=== PATIENT | female | born 1960 | race Caucasian/White ===

== ENCOUNTER → 2018-08-19 11:29 | Outpatient (CLI) | payer OTHER, SELFPAY ==
--- NOTE | 2018-08-19 11:41 | RAD_ITS ---
STUDY: X-RAY - THORACIC SPINE REASON FOR EXAM: Female, 58 years old. Back pain x 1 year. No known injury. TECHNIQUE: 3 view(s) of the thoracic spine were obtained. COMPARISON: None. FINDINGS: Normal kyphosis of the thoracic spine. There is no substantial scoliosis. There is multilevel endplate spondylosis of the thoracic vertebrae. Normal disc space heights. There is no demonstrated compression fracture deformity or osseous destructive lesion. The paraspinal soft tissue structures are unremarkable. RAD/Thoracic Spine 3 Views IMPRESSION: Multilevel degenerative changes of the thoracic spine. Electronically Signed: Srini Hardy MD at 16:21 EDT , Service support ,
--- NOTE | 2018-08-19 11:41 | RAD_ITS ---
STUDY: X-RAY - LUMBAR SPINE REASON FOR EXAM: Female, 58 years old. Back pain x 1 year. TECHNIQUE: 5 view(s) of the lumbar spine were obtained. COMPARISON: None FINDINGS: Normal lumbar lordosis. There is a 5 degree dextroscoliosis of the lumbar spine centered at L4-5. There is mild retrolisthesis of L5 on S1 and borderline leftward subluxation of L4 on L5. 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 There is also foreshortening of the pedicular lengths at L5, leading to a relative narrowing of the spinal canal at that level. There is multilevel endplate spondylosis of the lumbar vertebrae. There is moderately severe L5-S1 degenerative disc height narrowing, and moderate narrowing at L4-5. There is no demonstrated osseous destructive lesion or fracture. There are multilevel degenerative arthroses of the bilateral facet articulations, most prominent at L4-5 and L5-S1. Early degenerative arthroses of the bilateral sacroiliac joints also suggested. The soft tissue structures are unremarkable. RAD/L/S Spine Min 4 Views IMPRESSION: 1. Degenerative changes of the spine, as detailed above. 2. 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 Electronically Signed: Srini Hardy MD at 15:57 EDT , Service support ,
== END ==
PROVIDERS: Family Provider Family Medicine; PCP Family Medicine; Referring Provider Family Medicine; Visit Provider Family Medicine
DX: M54.9 Dorsalgia, unspecified (principal); M54.6 Pain in thoracic spine
CPT/HCPCS: 72070; 72072; 72110

== ENCOUNTER → 2018-09-05 07:44 | Outpatient (CLI) | payer OTHER, SELFPAY ==
[2018-09-05 08:40] LABS: Absolute Lymphocyte Count 1.75 X10^3/ul (0.83-4.51); Absolute Neutrophil Count 2.1 X10^3/uL (2.0-7.7); Basophil# 0.05 X10^3/uL; Basophil% 1.1 % (0-1); Eosinophil# 0.16 X10^3/uL; Eosinophils% 3.5 % (0-5); Hematocrit 41.8 % (37-47); Hemoglobin 14.2 g/dl (12.0-15.0); Lymphocyte # 1.75 X10^3/ul (4.0); Lymphocyte % 38.2 % (19-41); Mean Corpuscular Hgb 29.2 pg (27.0-32.0); Mean Platelet Vol. 10.8 fl (6.2-12.0); Monocyte# 0.49 X10^3/uL; Monocyte% 10.7 % (0-10); Neutrophil # 2.12 X10^3/uL (2.7-7.7); Neutrophil % 46.3 % (47-70); POSITIVE COUNT NO; POSITIVE DIFFERENTIAL NO; POSITIVE MORPHOLOGY NO; Platelet Count 307 K/mm3 (150-450); RBC Distribution Width CV 13.2 % (11.6-14.6); RBC Distribution Width SD 40.9 fl (35.1-43.9); Red Blood Count 4.86 M/mm3 (4.2-5.4); White Blood Count 4.6 K/mm3 (4.4-11.0)
[2018-09-05 09:13] LABS: AST(SGOT) 18 U/L (15-37); Alanine Aminotransfer ALT/SGPT 33 U/L (13-56); Albumin, Serum 3.8 g/dL (3.2-5.0); Alkaline Phosphatase 125 U/L (45-117); Anion Gap 10 (5-15); BUN 16 mg/dL (7-18); BUN/Creat Ratio 17.3 RATIO (10-20); Calcium,Total 9.3 mg/dL (8.5-10.1); Chloride 106 mmol/L (98-107); Cholesterol 201 mg/dL (200); Creatinine, Serum 0.92 mg/dL (0.55-1.02); EST Glomerular Filtration Rate 66 mL/min (>60); Est Glom Filt Rate - Afr Amer 80 mL/min (>60); Globulin 3.9 g/dL (2.2-4.2); Glucose 93 mg/dL (74-106); High Density Lipoprotein 47 mg/dL; Potassium 3.9 mmol/L (3.5-5.1); Protein, Total 7.7 g/dL (6.4-8.2); Sodium Level 141 mmol/L (136-145); Thyroid Stim Hormone (TSH) 4.08 uIU/mL (0.358-3.74); Triglycerides 156 mg/dL; Very Low Density Lipoprotein 31 mg/dL (5-40)
== END ==
PROVIDERS: Family Provider Family Medicine; PCP Family Medicine; Referring Provider Family Medicine; Visit Provider Family Medicine
DX: E03.9 Hypothyroidism, unspecified (principal); I10 Essential (primary) hypertension; E78.5 Hyperlipidemia, unspecified; Z51.81 Encounter for therapeutic drug level monitoring
CPT/HCPCS: 36415; 80053; 80061; 84443; 85025

== ENCOUNTER → 2018-09-21 11:56 | Outpatient (CLI) | payer OTHER, SELFPAY ==
--- NOTE | 2018-09-21 11:59 | BI_ITS ---
MAMMOGRAPHY - BILATERAL SCREENING REASON FOR EXAM: Female, 58 years old. Routine annual screening examination. PERTINENT HISTORY: Non-contributory. TECHNIQUE: Digital bilateral breast heena (3D mammographic acquisition) in the CC and MLO projections. 2-D mediolateral oblique (MLO) and craniocaudad (CC) views of both breasts were obtained. CAD: Full Field Digital Mammography with Computer Added Detection was performed. COMPARISON: Comparison is made with prior examination dated July 17, 2016 and December 15, 2012. FINDINGS: Breast Composition: There are scattered areas of fibroglandular density. There are no dominant masses or suspicious calcifications. Stable 7 mm x 8 mm well-defined nodule in the upper lateral aspect of the right breast. Stable appearance of the bilateral axillary lymph nodes. No other significant abnormalities are identified. There has been no significant change since the prior study. BI/SCREENING MAMM (CAD), BILAT IMPRESSION: Stable bilateral screening mammogram. Correlation with ultrasound of the right breast is recommended for further evaluation. ASSESSMENT CATEGORY: BIRADS Category 0: Incomplete. Need additional imaging evaluation. A letter regarding these results will be sent to the patient by the facility within 30 days. Approximately 10% of breast cancers are not detected by mammography. A normal mammogram should not delay biopsy of a clinically suspicious abnormality. [id number] Electronically Signed: Lenin Singh MD at 13:36 EST Tel [phone], Service support ,
== END ==
PROVIDERS: Family Provider Family Medicine; PCP Family Medicine; Visit Provider Family Medicine
DX: Z12.31 Encounter for screening mammogram for malignant neoplasm of breast (principal)
CPT/HCPCS: 77063; 77067

== ENCOUNTER → 2018-09-28 10:59 | Outpatient (CLI) | payer OTHER, SELFPAY ==
--- NOTE | 2018-09-28 11:02 | US_ITS ---
STUDY: ULTRASOUND BREAST - RIGHT REASON FOR EXAM: Female, 58 years old. Abnormal screening mammogram. TECHNIQUE: Axial and longitudinal images of the RIGHT breast were performed with a high resolution ultrasound transducer. COMPARISON: Comparison is made with prior mammogram dated September 21, 2018. FINDINGS: RIGHT Breast: There is a 0.5 cm x 1.1 cm x 0.5 cm hypoechoic slightly ill-defined nodule at the 11:00 position of the breast at 3 cm from the nipple. A calcific focus is seen within it. A biopsy is recommended for further evaluation. US/Breast Limited Unilateral IMPRESSION: The mammographic abnormality corresponds to a 0.5 cm x 1.1 cm x 0.5 cm hypoechoic slightly ill-defined nodule with calcific focus within it. This is at the 11:00 position in the breast at 3 summary from the nipple. A biopsy is recommended for further evaluation. ASSESSMENT CATEGORY: BIRADS Category 4: Suspicious - Biopsy Should Be Considered. A letter regarding these results will be sent to the patient by the facility within 30 days. Electronically Signed: Lenin Singh MD at 13:54 EST Tel [phone], Service support ,
== END ==
PROVIDERS: Family Provider Family Medicine; PCP Family Medicine; Referring Provider Family Medicine; Visit Provider Family Medicine
DX: N63.0 Unspecified lump in unspecified breast (principal)
CPT/HCPCS: 76642

== ENCOUNTER → 2018-10-14 09:54 | Outpatient (CLI) | payer OTHER, SELFPAY ==
[2018-10-05 13:09] VITALS: BMI 36.0
[2018-10-14 12:21] LABS: T4 Free Direct 1.02 ng/dL (0.76-1.46); Thyroid Stim Hormone (TSH) 3.74 uIU/mL (0.358-3.74)
[2018-10-14 12:24] LABS: T3 Total - Triiodothyronine 0.92 ng/mL (0.6-1.81)
--- OUTSIDE RECORDS SUMMARY | 2018-12-09 17:43 | XMS RPT_ITS ---
:1960 Author Organization OH[facility] Care Team Providers Name Role Phone Malys, Keila Attending Unavailable Malys, Keila Referring Unavailable Malys, Keila Primary Care Unavailable Malys, Keila Attending Unavailable Malys, Keila Referring Unavailable Malys, Keila Primary Care Unavailable Malys, Keila Attending Unavailable Malys, Keila Primary Care Unavailable Malys, Keila Attending Unavailable Malys, Keila Referring Unavailable Malys, Keila Primary Care Unavailable Robotham, Aviva Attending Unavailable Malys, Keila Referring Unavailable Malys, Keila Attending Unavailable Malys, Keila Primary Care Unavailable Robotham, Aviva Attending Unavailable Malys, Keila Referring Unavailable Robotham, Aviva Attending Unavailable Robotham, Aviva Referring Unavailable Keila Murillo Primary Care Unavailable PROBLEMS PROBLEMS DATE TYPE CONDITION / CODE ATTENDING STATUS SOURCE 10/19/2018 Unknown N63.10 - Ernst Ceron Unspecified lump [facility] right Hospital breast, Repository unspecified quadrant / N63.10(ICD-10) 08/19/2018 Unknown M54.9 - Keila Murillo Active [facility], Community unspecified / Hospital M54.9(ICD-10) Repository 08/19/2018 Unknown M54.6 - Pain in Keila Murillo Active [facility] thoracic spine / Community M54.6(ICD-10) Hospital Repository PROCEDURES PROCEDURES No Procedure Records FoundRESULTS RESULTS SURGERY VISIT REPORT Observed: 10/20/2018 Status: F Source: [place] 12:49 PM [facility] REPOSITORY [facility] [address] [place] [address]. [address] [place] [address] OFFICE VISIT Date of Service: 10/19/18 MR#: [id number] Acct: [id number] Name: LAZAROWINSTON Cholo Rep #: [id number] : 1960 Provider: Aviva Ceron MD Age/Sex: 58/F Location: [facility] Status: Signed Intake Vital Signs10/19/18 Body Mass Index (BMI) 36.0 Intake Visit Reasons: R Breast BX Sr. Consultant Required: No Is patient in pain?: No Allergies No Known Allergies Allergy (Verified 10/19/18 12:57) Medications Lactobacillus combination no.23 14 billion cell capsule cell PO cap 10/05/18 [History Confirmed 10/19/18] aspirin 81 mg tablet,delayed release 81 mg PO DAILY 10/05/18 [History Confirmed 10/19/18] biotin 5,000 mcg disintegrating tablet 10,000 mcg PO DAILY 10/05/18 [History Confirmed 10/19/18] fluoxetine 40 mg capsule 40 mg PO DAILY 10/05/18 [History Confirmed 10/19/18] gabapentin 100 mg capsule 100 mg PO DAILY 10/05/18 [History Confirmed 10/19/18] levothyroxine 50 mcg tablet 50 mcg PO DAILY 10/05/18 [History Confirmed 10/19/18] loratadine 10 mg tablet 10 mg PO DAILY 10/05/18 [History Confirmed 10/19/18] losartan 50 mg-hydrochlorothiazide 12.5 mg tablet 1 tab PO DAILY 10/05/18 [History Confirmed 10/19/18] multivitamin tablet 1 tab PO DAILY 10/05/18 [History Confirmed 10/19/18] naproxen sodium 220 mg capsule 220 mg PO BID PRN 10/05/18 [History Confirmed 10/19/18] omega-3 fatty acids 1,000 mg capsule 1,000 mg PO DAILY 10/05/18 [History Confirmed 10/19/18] ranitidine 150 mg tablet 150 mg PO DAILY 10/05/18 [History Confirmed 10/19/18] turmeric root extract 500 mg capsule 500 mg PO DAILY 10/05/18 [History Confirmed 10/19/18] PFSH Medical History Acid reflux (Acute) History of blood clots (Acute) Hypothyroid (Acute) HTN (hypertension) (Chronic) Surgical History S/P carpal tunnel release (Acute) S/P hysterectomy (Acute) S/P right oophorectomy (Acute) Status post right foot surgery (Acute) s/p tonsillectomy (Acute) Family History Father Hypertension Social History Smoking Status: Never smoker alcohol intake: current alcohol intake frequency: a few times a week HPI HPI HPI: WINSTON WILLIS, is a 58 F who presents to the office today for ultrasound-guided right breast biopsy of a nodule which is 0.5 x 1.1 x 0.5 hypoechoic slightly ill-defined nodule in the right upper lateral aspect, 11:00 3 cm from the nipple. Exam Const General: cooperative, comfortable, no acute distress Office Procedures Biopsy Provider Documentation Reviewed the ultrasound and mammography with patient and discussed the need for biopsy. Reviewed the procedure of biopsy with the mammotome vacuum assisted device. A marker clip will be placed to identify the location. Patient has been counseled to the risks/benefits of the procedure. I have explained the risks of the surgery, including but not limited to: infection, bleeding, injury to any blood vessels/nerves, scar tissue, missing the lesion, further surgery, etc. - the patient understands and agrees to proceed. I have answered all of the patient's questions to her satisfaction and she has no further questions. Signed consent is completed. Procedure: ultrasound-guided core biopsy Description of procedure: Patient was brought into the ultrasound room in the right breast was marked. A timeout was completed verifying correct patient, procedure, site, specially, prior to beginning procedure. The right breast was prepped and draped in usual sterile fashion and using local anesthesia was obtained with 1% lidocaine with epi. The lesion was located with the ultrasound at 11:00 3 cm from nipple. Small incision was made with 11 blade to introduced the mammotome through the skin. Under ultrasound guidance multiple core samples were obtained using then 13-gauge mammotome and sent in formalin for pathology. The mammotome mammostar clip was then deployed into the biopsy cavity under ultrasound guidance and a picture was taken. Upon completion procedure hemostasis was obtained and a Steri- Strip and OpSite were placed. The patient tolerated the procedure well and left the office in good condition. Alert Haunted History Tour Guide Yes Biopsy Breast Biopsy: 56666 US Guidance Procedure Time Out Time Out Informed consent given: Yes Consent signed: Yes Time out checklist: patient, procedure, site marked/identified, positioning of patient, supplies available, allergies confirmed, team agrees on procedure Time out staff in room: Yes Time out verified: Yes Time out date: 10/19/18 Time out time: 12:58 Assessment AND Plan Problems 1. Breast mass, right N63.10 Plan Patient tolerated the right ultrasound-guided breast biopsy well. Left the office in stable condition. Will contact patient with the pathology results. Patient is agreeable with plan Aviva Ceron M.D. Pager: [phone] [facility] [address] [place] [address], [address] [place] [address] Office: [phone] Plan Detail Follow Up Will contact patient with pathology results Coding Level of Care Code Attention Haunted History Tour Guide Diagnoses Breast mass, right N63.10 Additional Codes Biopsy - Breast Biopsy: 59236 US Guidance (84991) Comment 75383 10/20/18 1249 <Electronically signed by Aviva Ceron MD> Date Aviva Florence Signature: Date (if applicable) CC: Keila Murillo DO BREAST BIOPSY Observed: 10/19/2018 Status: F Source: [place] (CHOOSE SITE) 1:25 PM [facility] REPOSITORY Patient: WINSTON WILLIS : 1960 (58/F) Acct Num: [id number] Phys: Jie CENTENO,Aviva Unit Num: [id number] Loc: [facility]SPEC Specimen: [id number] Received: 10/19/181441 Spec Type: BREAST BX TISSUES 1 TISSUES: Right breast, NOS COMMENT Correlation with clinical, radiologic findings and appropriate follow up are necessary. Case has been reviewed in consultation with Dr. Jimenez who concurs with the above diagnosis. IDC:AM GROSS DESCRIPTION Received in fixative is one container labeled with the patient's name and designated right breast biopsy. The specimen consists of multiple fragments of lilly-yellow fibroadipose tissue that in aggregate measure 2.5 x 1 x 0.1 cm. The entire specimen is submitted in one cassette. / SJ:chloé 10/19/18 TC:5 CPT: 96021 HEADER OPERATION: Mammotome biopsy right breast PRE-OP DIAGNOSIS: Right breast mass N63.10 TISSUE SUBMITTED: Right breast tissue ISCHEMIC TIME: 1 minute FIXATION TIME: 6 hours MICROSCOPIC DESCRIPTION Slides are reviewed. MICROSCOPIC DIAGNOSIS Right breast, mammotome core biopsy: Focal adenosis and intraductal hyperplasia without atypia. Focal changes suggestive of intraductal papilloma. Negative for malignancy. SJ:chloé 10/20/18 Signed Johnnie Solano 10/20/18 <signature on file> Performed By: #### PBRBX #### [facility] [address] [place], [address] THYROID STIM HORMONE Collected: 10/14/2018 Status: F Source: [place] (TSH) 9:55 AM [facility] REPOSITORY TYPE CODE TESTS RESULT OUT OF RANGE REFERENCE UNITS LAB L501.9520 0.358-3.74 uIU/mL Normal TSH 3.74 Performed By: #### L501.9520, L506.0400 #### [facility] [address] [place], [address] T4 FREE DIRECT Collected: 10/14/2018 Status: F Source: [place] 9:55 AM [facility] REPOSITORY TYPE CODE TESTS RESULT OUT OF RANGE REFERENCE UNITS LAB L506.0400 0.76-1.46 ng/dL Normal T4 FREE 1.02 DIRECT Performed By: #### L501.9520, L506.0400 #### [facility] [address] [place], [address] T3 TOTAL - TRIIODOTHYRONINE Collected: 10/14/2018 Status: F Source: [place] 9:55 AM [facility] REPOSITORY TYPE CODE TESTS RESULT OUT OF RANGE REFERENCE UNITS LAB L501.9186 0.6-1.81 ng/mL Normal T3 Total 0.92 Performed By: #### L501.9186 #### [facility] [address] [place], [address] SURGERY VISIT REPORT Observed: 10/06/2018 Status: F Source: [place] 8:34 AM [facility] REPOSITORY [facility] [address] [place] [address] OFFICE VISIT Date of Service: 10/05/18 MR#: [id number] Acct: [id number] Name: WINSTON WILLIS Rep #: [id number] : 1960 Provider: Aviva Ceron MD Age/Sex: 58/F Location: [facility] Status: Signed Intake Vital Signs10/05/18 Height 5 ft 7 in 10/05/18 Weight: 230 lb 10/05/18 Body Mass Index (BMI) 36.0 Intake Visit Reasons: Birads 4 Mammo 09/21 US 09/28 Sr. Consultant Required: No Is patient in pain?: No Allergies No Known Allergies Allergy (Verified 10/05/18 13:10) Medications Lactobacillus combination no.23 14 billion cell capsule cell PO cap 10/05/18 [History Confirmed 10/05/18] aspirin 81 mg tablet,delayed release 81 mg PO DAILY 10/05/18 [History Confirmed 10/05/18] biotin 5,000 mcg disintegrating tablet 10,000 mcg PO DAILY 10/05/18 [History Confirmed 10/05/18] fluoxetine 40 mg capsule 40 mg PO DAILY 10/05/18 [History Confirmed 10/05/18] gabapentin 100 mg capsule 100 mg PO DAILY 10/05/18 [History Confirmed 10/05/18] levothyroxine 50 mcg tablet 50 mcg PO DAILY 10/05/18 [History Confirmed 10/05/18] loratadine 10 mg tablet 10 mg PO DAILY 10/05/18 [History Confirmed 10/05/18] losartan 50 mg-hydrochlorothiazide 12.5 mg tablet 1 tab PO DAILY 10/05/18 [History Confirmed 10/05/18] multivitamin tablet 1 tab PO DAILY 10/05/18 [History Confirmed 10/05/18] naproxen sodium 220 mg capsule 220 mg PO BID PRN 10/05/18 [History Confirmed 10/05/18] omega-3 fatty acids 1,000 mg capsule 1,000 mg PO DAILY 10/05/18 [History Confirmed 10/05/18] ranitidine 150 mg tablet 150 mg PO DAILY 10/05/18 [History Confirmed 10/05/18] turmeric root extract 500 mg capsule 500 mg PO DAILY 10/05/18 [History Confirmed 10/05/18] PFSH Medical History Acid reflux (Acute) History of blood clots (Acute) Hypothyroid (Acute) HTN (hypertension) (Chronic) Surgical History S/P carpal tunnel release (Acute) S/P hysterectomy (Acute) S/P right oophorectomy (Acute) Status post right foot surgery (Acute) s/p tonsillectomy (Acute) Family History Father Hypertension Social History Smoking Status: Never smoker alcohol intake: current alcohol intake frequency: a few times a week HPI HPI HPI: WINSTON WILLIS, is a 58 F who presents to the office today for right breast mass. Patient underwent her screening mammography which showed stable nodule in the right upper lateral aspect of the breast about 7 mm x 8 mm. Patient did get an ultrasound of this area which showed 0.5 x 1.1 x 0.5 cm hypoechoic slightly ill-defined nodule with calcification focus intense. Given a BI-RADS 4. Patient denies any pain in her right breast or any trauma. Patient was planning on getting breast reduction due to her being Size G. Patient denies any previous biopsies in the past or any family history of breast cancer. ROS Breast Breast: Yes abnormal US; no abnormal mammogram, left breast lump, nipple discharge, breast pain, right breast lump (Patient unable to feel on exam) or breast enlargement Exam Const General: cooperative, comfortable, no acute distress Chest Breast inspection: normal inspection of the breasts Breast Palpation: No nipple discharge Other: Breasts: No masses or nipple discharge or change in the overlying skin appreciated on exam bilaterally, no subclavicular or axillary adenopathy appreciated bilaterally Assessment AND Plan Problems 1. Breast mass, right N63.10 Plan I have discussed above with the patient. I have recommended ultrasound guided needle core breast biopsy with vacuum assistance. I have described the procedure to the patient. A marker clip will be placed to identify the location. Patient has been counseled to the risks/benefits of the procedure. I have explained the risks of the surgery, including but not limited to: infection, bleeding, injury to any blood vessels/nerves, scar tissue, missing the lesion, further surgery, etc. - the patient understands and agrees to proceed. I have answered all of the patient's questions to her satisfaction and she has no further questions. Plans to go to [facility] on October 17 with her grandkids and will plan to make her appointment after that. Patient also stop her aspirin fish oil for 5 days prior Aviva Ceron M.D. Pager: [phone] [facility] [address] [place] [address], [facility], [address] [place] [address] Office: [phone] Plan Detail Follow Up We will schedule right breast ultrasound-guided biopsy. Coding Level of Care Code Off vis,new,level 3 Diagnoses Breast mass, right N63.10 10/06/18 0834 <Electronically signed by Aviva Ceron MD> Date Aviva Florence Signature: Date (if applicable) CC: Keila Murillo DO BREAST LIMITED Observed: 09/28/2018 Status: F Source: [place] UNILATERAL 11:02 AM [facility] REPOSITORY [facility] Services [address] [place] [address] Breast Limited Unilateral MR#: [id number] Acct: [id number] Name: WINSTON WILLIS Rep #: [id number] : 1960 F 58 From: Lenin Singh MD PCP: Keila Murillo DO Status: REG CLI Study: Breast Limited Unilateral Date of Exam: 09/28/18 Exam# [id number] Ordering Dr: Keila Murillo DO STUDY: ULTRASOUND BREAST - RIGHT REASON FOR EXAM: Female, 58 years old. Abnormal screening mammogram. TECHNIQUE: Axial and longitudinal images of the RIGHT breast were performed with a high resolution ultrasound transducer. COMPARISON: Comparison is made with prior mammogram dated September 21, 2018. FINDINGS: RIGHT Breast: There is a 0.5 cm x 1.1 cm x 0.5 cm hypoechoic slightly ill- defined nodule at the 11:00 position of the breast at 3 cm from the nipple. A calcific focus is seen within it. A biopsy is recommended for further evaluation. US/Breast Limited Unilateral IMPRESSION: The mammographic abnormality corresponds to a 0.5 cm x 1.1 cm x 0.5 cm hypoechoic slightly ill-defined nodule with calcific focus within it. This is at the 11:00 position in the breast at 3 summary from the nipple. A biopsy is recommended for further evaluation. ASSESSMENT CATEGORY: BIRADS Category 4: Suspicious - Biopsy Should Be Considered. A letter regarding these results will be sent to the patient by the facility within 30 days. Electronically Signed: Lenin Singh MD at 13:54 EST Tel [phone], Service support , CC: Keila Murillo DO Window Glass Cutter Off: Signed SCREENING MAMM (CAD), Observed: 09/21/2018 Status: F Source: [place] BILAT 11:59 AM [facility] REPOSITORY [facility] Imaging Services [address] [place] [address] SCREENING MAMM (CAD), BILAT MR#: [id number] Acct: [id number] Name: WINSTON WILLIS Rep #: [id number] : 1960 F 58 From: Lenin Singh MD PCP: Keila Murillo DO Status: REG CLI Study: SCREENING MAMM (CAD), BILAT Date of Exam: 09/21/18 Exam# [id number] Ordering Dr: Keila Murillo DO MAMMOGRAPHY - BILATERAL SCREENING REASON FOR EXAM: Female, 58 years old. Routine annual screening examination. PERTINENT HISTORY: Non-contributory. TECHNIQUE: Digital bilateral breast heena (3D mammographic acquisition) in the CC and MLO projections. 2-D mediolateral oblique (MLO) and craniocaudad (CC) views of both breasts were obtained. CAD: Full Field Digital Mammography with Computer Added Detection was performed. COMPARISON: Comparison is made with prior examination dated July 17, 2016 and December 15, 2012. FINDINGS: Breast Composition: There are scattered areas of fibroglandular density. There are no dominant masses or suspicious calcifications. Stable 7 mm x 8 mm well-defined nodule in the upper lateral aspect of the right breast. Stable appearance of the bilateral axillary lymph nodes. No other significant abnormalities are identified. There has been no significant change since the prior study. BI/SCREENING MAMM (CAD), BILAT IMPRESSION: Stable bilateral screening mammogram. Correlation with ultrasound of the right breast is recommended for further evaluation. ASSESSMENT CATEGORY: BIRADS Category 0: Incomplete. Need additional imaging evaluation. A letter regarding these results will be sent to the patient by the facility within 30 days. Approximately 10% of breast cancers are not detected by mammography. A normal mammogram should not delay biopsy of a clinically suspicious abnormality. [id number] Electronically Signed: Lenin Singh MD at 13:36 EST Tel [phone], Service support , CC: Keila Murillo DO Window Glass Cutter Off: Signed CBC W/DIFF, AUTOMATED Collected: 09/05/2018 Status: F Source: [place] 7:47 AM [facility] REPOSITORY TYPE CODE TESTS RESULT OUT OF RANGE REFERENCE UNITS LAB L100.1000 4.4-11.0 K/mm3 Normal WBC 4.6 LAB L100.1200 4.2-5.4 M/mm3 Normal RBC 4.86 LAB L100.1300 12.0-15.0 g/dl Normal HGB 14.2 LAB L100.1400 37-47 % Normal HCT 41.8 LAB L100.1500 81-99 fL Normal MCV 86.0 LAB L100.1600 27.0-32.0 pg Normal MCH 29.2 LAB L100.1700 32-36 g/gl Normal MCHC 34.0 LAB L100.1810 11.6-14.6 % Normal RDW CV 13.2 LAB L100.1820 35.1-43.9 fl Normal RDW SD 40.9 LAB L100.1900 150-450 K/mm3 Normal PLT 307 LAB L100.2000 6.2-12.0 fl Normal MPV 10.8 LAB L100.2100 47-70 % Low NEUT% 46.3 LAB L100.2200 19-41 % Normal LY% 38.2 LAB L100.2300 0-10 % High MONO% 10.7 LAB L100.2400 0-5 % Normal EO% 3.5 LAB L100.2500 0-1 % High BASO% 1.1 LAB L100.2550 0.0-0.9 % Normal IM GRAN % 0.200 Result Comment: IG% - Immature Granulocytes (promyelocytes, myelocytes and metamyelocytes) > 1% indicates that a LEFT SHIFT is Present. LAB L100.2620 2.0-7.7 X10 3/uL Normal Absolute Neut 2.1 LAB L100.2720 0.83-4.51 X10 3/ul Normal Absolute Lymph 1.75 Performed By: #### L100.0100 #### [facility] [address] [place], [place], [address] COMPREHENSIVE METABOLIC Collected: 09/05/2018 Status: F Source: [facility] 7:47 AM [facility] REPOSITORY TYPE CODE TESTS RESULT OUT OF RANGE REFERENCE UNITS LAB L501.0100 74-106 mg/dL Normal GLU 93 Result Comment: Please note revised GLUCOSE reference range effective 2017. LAB L501.1000 7-18 mg/dL Normal BUN 16 LAB L501.1100 0.55-1.02 mg/dL Normal CREAT,SERUM 0.92 Result Comment: The validity of the calculated GFR AND GFRAA in patients over 70 years has not been determined. Clinical correlation is essential. LAB L501.1110 >60 mL/min Normal EST GFR 66 Result Comment: Non- GFR Calc LAB L501.1115 >60 mL/min Normal EST GFR - AA 80 Result Comment: GFR Calc LAB L501.1300 10-20 RATIO Normal BUN/CRE 17.3 LAB L501.1500 6.4-8.2 g/dL T Normal PROT 7.7 LAB L501.1800 3.2-5.0 g/dL Normal ALB 3.8 LAB L501.1950 2.2-4.2 g/dL Normal GLOB 3.9 LAB L501.2000 0.9-2.4 RATIO Normal A/G 1.0 LAB L501.2200 8.5-10.1 mg/dL CA Normal 9.3 LAB L501.4100 15-37 U/L Normal AST 18 LAB L501.4305 45-117 U/L High ALK P 125 LAB L501.4405 13-56 U/L Normal ALT 33 LAB L501.4600 0.20-1.00 mg/dL T Normal BILI 0.50 LAB L501.5300 136-145 mmol/L NA Normal 141 LAB L501.5600 3.5-5.1 mmol/L K Normal 3.9 LAB L501.5900 98-107 mmol/L CL Normal 106 LAB L501.6100 21.0-32.0 mmol/L Normal CO2 25.0 LAB L501.6200 5-15 Normal GAP 10 Performed By: #### L500.4050, L500.4100, L501.9520 #### [facility] [address] [facility] [place], [address] LIPID PROFILE Collected: 09/05/2018 Status: F Source: [place] 7:47 AM [facility] REPOSITORY TYPE CODE TESTS RESULT OUT OF RANGE REFERENCE UNITS LAB L501.4900 200 mg/dL High CHOL 201 Result Comment: <200 mg/dL Desirable 200-240 mg/dL Borderline >240 mg/dL High Risk LAB L501.5000 mg/dL Normal TRIG 156 Result Comment: The drugs N-Acetylcysteine and Metamizole may falsely depress this assay. Serum Triglycerides Reference Interval Normal <150 mg/dL Borderline high 150 - 199 mg/dL High 200 - 499 mg/dL Very High > or = 500 mg/dL LAB L501.6400 mg/dL Normal HDL 47 Result Comment: The drugs N-Acetylcysteine and Metamizole may falsely depress this assay. Reference Range HDL <40 mg/dL Low HDL Cholesterol HDL >or= 60 mg/dL High HDL Cholesterol LAB L501.6500 0-130 mg/dL Normal LDL 123 LAB L501.6600 5-40 mg/dL Normal VLDL 31 Performed By: #### L500.4050, L500.4100, L501.9520 #### [facility] [address] [facility] [place], [address] THYROID STIM HORMONE Collected: 09/05/2018 Status: F Source: [place] (TSH) 7:47 AM [facility] REPOSITORY TYPE CODE TESTS RESULT OUT OF RANGE REFERENCE UNITS LAB L501.9520 0.358-3.74 uIU/mL High TSH 4.08 Performed By: #### L500.4050, L500.4100, L501.9520 #### [facility] [address] [place], [address] L/S SPINE MIN 4 Observed: 08/19/2018 Status: F Source: [place] VIEWS 11:41 AM [facility] REPOSITORY [facility] Imaging Services [address] [place] [address] L/S Spine Min 4 Views MR#: [id number] Acct: [id number] Name: WINSTON WILLIS Rep #: [id number] : 1960 F 58 From: Sumit Hardy MD PCP: Keila Murillo DO Status: REG CLI Study: L/S Spine Min 4 Views Date of Exam: 08/19/18 Exam# [id number] Ordering Dr: Keila Murillo DO STUDY: X-RAY - LUMBAR SPINE REASON FOR EXAM: Female, 58 years old. Back pain x 1 year. TECHNIQUE: 5 view(s) of the lumbar spine were obtained. COMPARISON: None FINDINGS: Normal lumbar lordosis. There is a 5 degree dextroscoliosis of the lumbar spine centered at L4-5. There is mild retrolisthesis of L5 on S1 and borderline leftward subluxation of L4 on L5. 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 There is also foreshortening of the pedicular lengths at L5, leading to a relative narrowing of the spinal canal at that level. There is multilevel endplate spondylosis of the lumbar vertebrae. There is moderately severe L5-S1 degenerative disc height narrowing, and moderate narrowing at L4-5. There is no demonstrated osseous destructive lesion or fracture. There are multilevel degenerative arthroses of the bilateral facet articulations, most prominent at L4-5 and L5-S1. Early degenerative arthroses of the bilateral sacroiliac joints also suggested. The soft tissue structures are unremarkable. RAD/L/S Spine Min 4 Views IMPRESSION: 1. Degenerative changes of the spine, as detailed above. 2. 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 Electronically Signed: Srini Hardy MD at 15:57 EDT , Service support , CC: Keila Murillo DO Window Glass Cutter Off: Signed THORACIC SPINE 3 Observed: 08/19/2018 Status: F Source: [place] VIEWS 11:41 AM [facility] REPOSITORY [facility] Imaging Services [facility] [address] [place] [address] Thoracic Spine 3 Views MR#: [id number] Acct: [id number] Name: WINSTON WILLIS Rep #: [id number] : 1960 F 58 From: Sumit Hardy MD PCP: Keila Murillo DO Status: REG CLI Study: Thoracic Spine 3 Views Date of Exam: 08/19/18 Exam# [id number] Ordering Dr: Keila Murillo DO STUDY: X-RAY - THORACIC SPINE REASON FOR EXAM: Female, 58 years old. Back pain x 1 year. No known injury. TECHNIQUE: 3 view(s) of the thoracic spine were obtained. COMPARISON: None. FINDINGS: Normal kyphosis of the thoracic spine. There is no substantial scoliosis. There is multilevel endplate spondylosis of the thoracic vertebrae. Normal disc space heights. There is no demonstrated compression fracture deformity or osseous destructive lesion. The paraspinal soft tissue structures are unremarkable. RAD/Thoracic Spine 3 Views IMPRESSION: Multilevel degenerative changes of the thoracic spine. 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 ing:LABSPEC Repository 10/19/2018/ [id number] Ambulatory BMSBuilding:B L[place] 8 8 [facility] Repository 10/14/2018 [id number] Ambulatory [place] 9 [facility] ing:LAB.FUTUR Repository E 10/05/2018/ [id number] Ambulatory BMSBuilding:B [place] 8 9 [facility] Repository 09/28/2018 [id number] Ambulatory [place] 6 [facility] ing:OPUS Repository 09/21/2018 [id number] Ambulatory [place] 0 [facility] ing:OPBI Repository 09/05/2018 [id number] Ambulatory [place] 4 [facility] ing:LAB Repository 08/19/2018 [id number] Ambulatory [place] 6 [facility] ing:RAD Repository PAYERS PAYERS ENCOUNTER GUARANTOR PAYER SUBSCRIBER SOURCE 10/19/2018 IWNSTON Emmanuel Primary Insurance:UMSteff Mariooster [id number] [facility] [id number] DANAYB: Critical access hospital RDAPPLE Number: [id number], [place] [id number] Repository [address]Ohd: 330) Date:5282-17-64CR [phone] [facility] [address], [place] [address]PS: 10/19/2018 Secondary NOT GIVENUNK [place] Insurance:SELF PAY [facility] Number: Effective Repository Date:2018-10-19 10/19/2018 WINSTON Emmanuel Primary Insurance:UMR ERICA Dameon [place] [id number] PATEL [id number] LAZARODOB: Community LYDIA RDAPPLE Number: [id number], [place] [id number] Repository [address]Cwi: (330) Date:7464-90-94IM [phone] (HP) [address] [place] [phone]: 10/19/2018 Secondary NOT GIVENUNK [place] Insurance:SELF PAY [facility] Number: Effective Repository Date:2018-10-05 10/14/2018 WINSTON Emmanuel Primary Insurance:UMR ERICA Mccarty [id number] PATEL [id number] LAZARODOB: Community LYDIA RDAPPLE Number: [id number], [place] [id number] Repository [address]Xac: (330) Date:4642-26-12YA [phone] () [address] [place], [place] [phone]: 10/14/2018 Secondary NOT GIVENUNK [place] Insurance:SELF PAY [facility] Number: Effective Repository Date:2018-10-05 10/05/2018 ERICA Xiao Primary Insurance:UMR ERICA Mccarty [id number] PATEL [id number] LAZARODOB: Community LYDIA RDAPPLE Number: [id number], [place] [id number] Repository [address]Efm: (330) Date:3519-71-09RO [phone] (HP) [address] [place] [id number]: 10/05/2018 Secondary NOT GIVENUNK [place] Insurance:SELF PAY [facility]: Effective Repository Date:2018-09-30 09/28/2018 ERICA Xiao Primary Insurance:UMR ERICA Mccarty [id number] PATEL [id number] LAZARODOB: Community LYDIA RDAPPLE Number: [id number], [place] [id number] Repository [address]Iug: (330) Date:2870-40-16YI [phone] (HP) [address] [place] [phone]: 09/28/2018 Secondary NOT GIVENUNK [place] Insurance:SELF PAY [facility] Number: Effective Repository Date:2018-09-23 09/21/2018 ERICA E Primary Insurance:UMR ERICA Mariooster [id number] PATEL [id number] LAZARODOB: Community LYDIA RDAPPLE Number: [id number], [place] [id number] Repository [address]Iky: (330) Date:8851-65-52JF [phone] (HP) [address] [place] [phone]: 09/21/2018 Secondary NOT GIVENUNK [place] Insurance:SELF PAY [facility] Number: Effective Repository Date:2018-08-19 09/05/2018 ERICA E Primary Insurance:UMR ERICA Xiao [place] [id number] PATEL [id number] LAZARODOB: Community LYDIA RDAPPLE Number: [id number], [place] [id number] Repository [address]Qnh: (330) Date:1914-69-00WS [phone] (HP) [address] [place] [phone]: 09/05/2018 Secondary NOT GIVENUNK [place] Insurance:SELF PAY [facility] Number: Effective Repository Date:2018-09-05 08/19/2018 ERICA E Primary Insurance:UMR ERICA Mccarty [id number] PATEL [id number] CAROLYNB: Community LYDIA RDAPPLE Number: [id number], [place] [id number] Repository [address]Wpy: 330) Date:9730-82-17QV [phone] (HP) [address] [place] [phone]: 08/19/2018 Secondary NOT GIVENUNK [place] Insurance:SELF PAY [facility] Number: Effective Repository Date:2018-08-19
== END ==
PROVIDERS: Family Provider Family Medicine; PCP Family Medicine; Visit Provider Family Medicine
DX: E03.9 Hypothyroidism, unspecified (principal)
CPT/HCPCS: 36415; 84439; 84443; 84480

== ENCOUNTER → 2018-10-19 14:51 | Outpatient (CLI) | payer OTHER, SELFPAY ==
[2018-10-19 12:58] VITALS: BMI 36.0
--- NOTE | 2018-10-19 13:25 | BRBX_PTH ---
PATIENT: WINSTON WILLIS LOC: [facility] U#:[id number] AGE/SX: 65/F ROOM: RE10/19/[address]: Dr. Aviva Ceron MD : 1960 BED: DIS: SPEC #: [id number] RECD: 10/19/18 14:42 STATUS: ALBERT AMY #: [id number] EDELMIRA: 10/19/18 13:[address]: Aviva Ceron DEPT: SURGICAL PATHOLOGY RECD BY: Zoe Wells ENTERED: 10/19/18 15:44 SP TYPE: BREAST BX OTHR DR: Dr. Keila Murillo DO Tissues: Right breast, NOS Procedures: Surgery Specimen Level IV HEADER OPERATION: Mammotome biopsy right breast PRE-OP DIAGNOSIS: Right breast mass N63.10 TISSUE SUBMITTED: Right breast tissue ISCHEMIC TIME: 1 minute FIXATION TIME: 6 hours MICROSCOPIC DIAGNOSIS Right breast, mammotome core biopsy: Focal adenosis and intraductal hyperplasia without atypia. Focal changes suggestive of intraductal papilloma. Negative for malignancy. ALE:chloé 10/20/18 COMMENT Correlation with clinical, radiologic findings and appropriate follow up are necessary. Case has been reviewed in consultation with Dr. Jimenez who concurs with the above diagnosis. IDC:AM MICROSCOPIC DESCRIPTION Slides are reviewed. GROSS DESCRIPTION Received in fixative is one container labeled with the patient's name and designated right breast biopsy. The specimen consists of multiple fragments of lilly-yellow fibroadipose tissue that in aggregate measure 2.5 x 1 x 0.1 cm. The entire specimen is submitted in one cassette. / ALE:chloé 10/19/18 TC:5 CPT: 04564
== END ==
PROVIDERS: Family Provider Family Medicine; PCP Family Medicine; Referring Provider Surgery; Visit Provider Surgery
DX: N60.21 Fibroadenosis of right breast (principal); N60.91 Unspecified benign mammary dysplasia of right breast
CPT/HCPCS: 88305

== ENCOUNTER → 2019-02-18 13:31 | Outpatient (CLI) | payer OTHER, SELFPAY ==
[2018-10-19 12:58] VITALS: BMI 36.0
[2019-02-24 15:39] LABS: T3 Total - Triiodothyronine 0.97 ng/mL (0.6-1.81)
== END ==
PROVIDERS: Family Provider Family Medicine; PCP Family Medicine; Visit Provider Family Medicine
DX: E03.9 Hypothyroidism, unspecified (principal)
CPT/HCPCS: 84439; 84443; 84480

== ENCOUNTER → 2020-06-23 13:47 | Outpatient (CLI) | payer OTHER, SELFPAY ==
[2018-10-19 12:58] VITALS: BMI 36.0
[2020-06-23 15:46] LABS: ALB/GLOB Ratio 1.1 RATIO (0.9-2.4); AST(SGOT) 22 U/L (15-37); Alanine Aminotransfer ALT/SGPT 38 U/L (13-56); Albumin, Serum 3.9 g/dL (3.2-5.0); Alkaline Phosphatase 137 U/L (45-117); Anion Gap 4 (5-15); BUN 20 mg/dL (7-18); BUN/Creat Ratio 19.2 RATIO (10-20); Chloride 107 mmol/L (98-107); Creatinine, Serum 1.04 mg/dL (0.55-1.02); EST Glomerular Filtration Rate 57 mL/min (>60); Est Glom Filt Rate - Afr Amer 69 mL/min (>60); Free T3 2.7 pg/mL (2.18-3.98); Globulin 3.5 g/dL (2.2-4.2); Glucose 81 mg/dL (74-106); Potassium 3.3 mmol/L (3.5-5.1); Protein, Total 7.4 g/dL (6.4-8.2); Sodium Level 141 mmol/L (136-145); T4 Free Direct 1.17 ng/dL (0.76-1.46); Thyroid Stim Hormone (TSH) 4.53 uIU/mL (0.358-3.74)
== END ==
PROVIDERS: PCP Family Medicine; Visit Provider Family Medicine
DX: E03.9 Hypothyroidism, unspecified (principal)
CPT/HCPCS: 36415; 80053; 84439; 84443; 84481

== ENCOUNTER → 2020-09-29 10:42 | Outpatient (CLI) | payer OTHER, SELFPAY ==
[2018-10-19 12:58] VITALS: BMI 36.0
[2020-09-29 13:36] LABS: Free T3 2.8 pg/mL (2.18-3.98); T4 Free Direct 1.03 ng/dL (0.76-1.46); Thyroid Stim Hormone (TSH) 3.86 uIU/mL (0.358-3.74)
== END ==
PROVIDERS: PCP Family Medicine; Visit Provider Family Medicine
DX: E03.9 Hypothyroidism, unspecified (principal)
CPT/HCPCS: 36415; 84439; 84443; 84481

== ENCOUNTER → 2020-12-08 09:27 | Outpatient (CLI) | payer OTHER, SELFPAY ==
[2018-10-19 12:58] VITALS: BMI 36.0
[2020-12-08 13:03] LABS: Free T3 2.9 pg/mL (2.18-3.98); T4 Free Direct 1.13 ng/dL (0.76-1.46); Thyroid Stim Hormone (TSH) 3.22 uIU/mL (0.358-3.74)
== END ==
PROVIDERS: PCP Family Medicine; Visit Provider Family Medicine
DX: E03.9 Hypothyroidism, unspecified (principal)
CPT/HCPCS: 36415; 84439; 84443; 84481

== ENCOUNTER → 2021-08-16 07:20 | Outpatient (CLI) | payer SELFPAY ==
--- NOTE | 2021-08-16 07:25 | BI_ITS ---
MAMMOGRAPHY - BILATERAL SCREENING REASON FOR EXAM: Female, 61 years old. Routine annual screening examination. PERTINENT HISTORY: Non-contributory. The patient is status post bilateral breast reduction surgery. TECHNIQUE: Digital bilateral breast john (3D mammographic acquisition) in the CC and MLO projections. 2-D mediolateral oblique (MLO) and craniocaudad (CC) views of both breasts were obtained. CAD: Full Field Digital Mammography with Computer Added Detection was performed. COMPARISON: Comparison is made with prior study dated 09/21/2018 and 07/17/2016. FINDINGS: Breast Composition: The breasts are almost entirely fatty. There now is evidence of a 4.4 cm x 3.1 cm densely calcified nodule in the retroareolar region of the right breast most likely secondary to postoperative necrosis and calcification. A 1 cm nodule is seen deep to the right temporal region as well. This is in keeping with the patient''s history of prior bilateral breast reduction surgery. No suspicious lesion is seen. No other significant abnormalities are identified. BI/SCRN MAMM (CAD)W/JOHN BILAT IMPRESSION: Status post bilateral breast reduction surgery with the dense calcification in the retroareolar region of the right breast as described. Yearly follow-up mammogram recommended. (A) ASSESSMENT CATEGORY: BIRADS Category 2: Benign. A letter regarding these results will be sent to the patient by the facility within 30 days. Approximately 10% of breast cancers are not detected by mammography. A normal mammogram should not delay biopsy of a clinically suspicious abnormality. [id number] Electronically Signed: Lenin Singh MD at 8:26 EDT , Service support ,
== END ==
PROVIDERS: PCP Family Medicine; Referring Provider Family Medicine; Visit Provider Family Medicine
DX: Z12.31 Encounter for screening mammogram for malignant neoplasm of breast (principal)
CPT/HCPCS: 77063; 77067

== ENCOUNTER 2022-10-07 13:04 | Outpatient (CLI) | payer SELFPAY ==
--- NOTE | 2022-10-07 13:12 | BI_ITS ---
MAMMOGRAPHY - BILATERAL SCREENING REASON FOR EXAM: Female, 62 years old. Routine annual screening examination. PERTINENT HISTORY: Non-contributory. Prior history of bilateral breast reduction surgery. TECHNIQUE: Digital bilateral breast john (3D mammographic acquisition) in the CC and MLO projections. 2-D mediolateral oblique (MLO) and craniocaudad (CC) views of both breasts were obtained. CAD: Full Field Digital Mammography with Computer Added Detection was performed. COMPARISON: 08/16/2021, 09/21/2018. FINDINGS: Breast Composition: There are scattered areas of fibroglandular density. There are no dominant masses or suspicious calcifications. Stable right breast benign dystrophic calcifications. Stable bilateral breast reduction postoperative changes. No other significant abnormalities are identified. There has been no significant change since the prior study. BI/SCRN MAMM (CAD)W/JOHN BILAT IMPRESSION: Stable bilateral screening mammogram. Yearly follow-up mammogram recommended. (A) ASSESSMENT CATEGORY: BIRADS Category 2: Benign. A letter regarding these results will be sent to the patient by the facility within 30 days. Approximately 10% of breast cancers are not detected by mammography. A normal mammogram should not delay biopsy of a clinically suspicious abnormality. Electronically Signed: Abraham Bowman, at 12:14 EST ,
== END 2022-10-07 23:59 | disposition home or self-care (01) ==
LOC: OPBI 13:06
PROVIDERS: PCP Family Medicine; Visit Provider Family Medicine
DX: Z12.31 Encounter for screening mammogram for malignant neoplasm of breast (principal)
CPT/HCPCS: 77063; 77067

== ENCOUNTER 2022-10-17 10:04 | Outpatient (CLI) | payer SELFPAY ==
[2022-10-17 12:20] LABS: Absolute Lymphocyte Count 1.77 X10^3/uL (0.83-4.51); Absolute Neutrophil Count 2.1 X10^3/uL (2.0-7.7); Basophil# 0.06 X10^3/uL; Basophil% 1.3 % (0-1); Eosinophil# 0.23 X10^3/uL; Eosinophils% 4.9 % (0-5); Hematocrit 41.1 % (37-47); Hemoglobin 13.7 g/dL (12.0-15.0); Lymphocyte # 1.77 X10^3/ul (0.83-4.51); Lymphocyte % 37.8 % (19-41); Mean Corp Hgb Conc 33.3 g/dL (32-36); Mean Corpuscular Hgb 28.8 pg (27.0-32.0); Mean Corpuscular Volume 86.5 fL (81-99); Mean Platelet Vol. 10.9 fl (6.2-12.0); Monocyte# 0.46 X10^3/uL; Monocyte% 9.8 % (0-10); NRBC Flagged by Analyzer 0 % (0-5); Neutrophil # 2.14 X10^3/uL (2.7-7.7); Neutrophil % 45.8 % (47-70); Platelet Count 311 K/mm3 (150-450); RBC Distribution Width CV 12.7 % (11.6-14.6); Red Blood Count 4.75 M/mm3 (4.2-5.4); White Blood Count 4.7 K/mm3 (4.4-11.0)
[2022-10-17 12:41] LABS: ALB/GLOB Ratio 1.1 RATIO (0.9-2.4); AST(SGOT) 18 U/L (15-37); Alanine Aminotransfer ALT/SGPT 36 U/L (13-56); Albumin, Serum 3.9 g/dL (3.2-5.0); Alkaline Phosphatase 117 U/L (45-117); Anion Gap 5 (5-15); BUN 18 mg/dL (7-18); BUN/Creat Ratio 18.5 RATIO (10-20); Calcium,Total 9.5 mg/dL (8.5-10.1); Chloride 105 mmol/L (98-107); Cholesterol 199 mg/dL (200); Creatinine, Serum 0.98 mg/dL (0.55-1.02); EST Glomerular Filtration Rate 61 mL/min (>60); Est Glom Filt Rate - Afr Amer 74 mL/min (>60); Globulin 3.5 g/dL (2.2-4.2); Glucose 106 mg/dL (74-106); High Density Lipoprotein 48 mg/dL; Potassium 3.9 mmol/L (3.5-5.1); Protein, Total 7.4 g/dL (6.4-8.2); Sodium Level 139 mmol/L (136-145); T4 Free Direct 1.13 ng/dL (0.76-1.46); Thyroid Stim Hormone (TSH) 3.13 uIU/mL (0.358-3.74); Triglycerides 158 mg/dL; Very Low Density Lipoprotein 32 mg/dL (5-40)
== END 2022-10-17 23:59 | disposition home or self-care (01) ==
LOC: BFHLAB 10:04
PROVIDERS: PCP Family Medicine; Visit Provider Family Medicine
DX: E03.9 Hypothyroidism, unspecified (principal); I10 Essential (primary) hypertension; E78.5 Hyperlipidemia, unspecified
CPT/HCPCS: 36415; 80053; 80061; 84439; 84443; 84481; 85025

== ENCOUNTER → 2023-03-15 | Outpatient (CLI) | payer SELFPAY ==
--- NOTE | 2023-03-15 08:00 | US_ITS ---
STUDY: ABDOMINAL ULTRASOUND - RIGHT UPPER QUADRANT REASON FOR VISIT: Female, 63 years old RUQ PAIN, DIARRHEA X 1 WEEK TECHNIQUE: Ultrasound evaluation of the right upper quadrant was performed with real-time and static yuan-scale imaging. TECHNICAL QUALITY: Adequate. COMPARISON: 04/19/2016 FINDINGS: Liver: The liver measures 18.3 cm. There is increased echogenicity consistent with fatty infiltration. The bile ducts are within normal limits. There is hepatic color flow. The direction of portal flow is hepatopetal. There is no demonstrated mass lesion. Gallbladder: Normal distended gallbladder. The gallbladder wall measures 2 mm. There is a negative sonographic Ngo''s sign. There is no pericholecystic fluid. There are no gallstones. Common Bile Duct (C.B.D.): The common bile duct measures 3 mm. Pancreas: Normal size of the head, body and tail of the pancreas. There is normal echogenicity of the pancreas. There is no demonstrated pancreatic mass or cyst. Right Kidney: Normal size of the right kidney. The right kidney measures 11.5 cm. Normal renal cortex. The right cortex measures 1.5 cm. 1.2 cm cyst in the midsection of the right kidney. There is no right hydronephrosis. US/Abdomen Limited IMPRESSION: Fatty infiltration of the liver. Electronically Signed: Michael Lunsford MD at 21:59 EDT ,
== END | disposition home or self-care (01) ==
LOC: US 07:41
PROVIDERS: PCP Family Medicine; Referring Provider Family Medicine; Visit Provider Family Medicine
DX: R10.11 Right upper quadrant pain (principal); R19.7 Diarrhea, unspecified
CPT/HCPCS: 76705

== ENCOUNTER → 2023-06-11 | Outpatient (CLI) | payer SELFPAY ==
[2023-06-11 12:49] LABS: Absolute Neutrophil Count 3.1 X10^3/uL (2.0-7.7); Basophil# 0.05 X10^3/uL; Basophil% 0.9 % (0-1); Eosinophil# 0.16 X10^3/uL; Eosinophils% 2.9 % (0-5); Hematocrit 40.5 % (37-47); Hemoglobin 13.4 g/dL (12.0-15.0); Lymphocyte % 29.2 % (19-41); Mean Corp Hgb Conc 33.1 g/dL (32-36); Mean Corpuscular Hgb 28.9 pg (27.0-32.0); Mean Corpuscular Volume 87.5 fL (81-99); Mean Platelet Vol. 11.2 fl (6.2-12.0); Monocyte% 10.9 % (0-10); NRBC Flagged by Analyzer 0 % (0-5); Neutrophil # 3.06 X10^3/uL (2.7-7.7); Neutrophil % 55.9 % (47-70); Platelet Count 327 K/mm3 (150-450); RBC Distribution Width SD 41.1 fl (35.1-43.9); Red Blood Count 4.63 M/mm3 (4.2-5.4); White Blood Count 5.5 K/mm3 (4.4-11.0)
[2023-06-11 14:01] LABS: ALB/GLOB Ratio 1.1 RATIO (0.9-2.4); AST(SGOT) 23 U/L (15-37); Alanine Aminotransfer ALT/SGPT 36 U/L (13-56); Alkaline Phosphatase 124 U/L (45-117); Anion Gap 7 (5-15); BUN 21 mg/dL (7-18); BUN/Creat Ratio 20.4 RATIO (10-20); CRP < 2.90 mg/L (0.0-3.0); Calcium,Total 9.8 mg/dL (8.5-10.1); Chloride 106 mmol/L (98-107); Cholesterol 193 mg/dL (200); Creatinine, Serum 1.03 mg/dL (0.55-1.02); EST Glomerular Filtration Rate 57 mL/min (>60); Est Glom Filt Rate - Afr Amer 69 mL/min (>60); Free T3 2.5 pg/mL (2.18-3.98); Globulin 3.5 g/dL (2.2-4.2); Glucose 100 mg/dL (74-106); High Density Lipoprotein 48 mg/dL; Potassium 3.8 mmol/L (3.5-5.1); Protein, Total 7.5 g/dL (6.4-8.2); Sodium Level 139 mmol/L (136-145); T4 Free Direct 1.22 ng/dL (0.76-1.46); Thyroid Stim Hormone (TSH) 3.53 uIU/mL (0.358-3.74); Triglycerides 232 mg/dL; Very Low Density Lipoprotein 46 mg/dL (5-40)
[2023-06-12 15:08] LABS: Endomysial Antibody IgA Negative (Negative); Immunoglobulin A 219 mg/dL (87-352); t-Transglutaminase IgA 4 U/mL (0-3)
== END | disposition home or self-care (01) ==
PROVIDERS: PCP Family Medicine; Referring Provider Internal Medicine Gastroenterology; Visit Provider Internal Medicine Gastroenterology
DX: E03.9 Hypothyroidism, unspecified (principal); I10 Essential (primary) hypertension; E78.5 Hyperlipidemia, unspecified; R19.7 Diarrhea, unspecified; R10.9 Unspecified abdominal pain
CPT/HCPCS: 36415; 80053; 80061; 82784; 83516; 84439; 84443; 84481; 85025; 86140; 86255

== ENCOUNTER → 2024-03-17 | Outpatient (CLI) | payer OTHER, SELFPAY ==
[2024-03-17 15:30] LABS: Hemoglobin A1c 5.4 % (3.8-5.6)
[2024-03-17 15:32] LABS: ALB/GLOB Ratio 1.1 RATIO (0.9-2.4); AST(SGOT) 26 U/L (15-37); Alanine Aminotransfer ALT/SGPT 41 U/L (13-56); Albumin, Serum 3.9 g/dL (3.2-5.0); Alkaline Phosphatase 118 U/L (45-117); Anion Gap 4 (5-15); BUN 27 mg/dL (7-18); BUN/Creat Ratio 22.9 RATIO (10-20); CRP 3.47 mg/L (0.0-3.0); Calcium,Total 9.9 mg/dL (8.5-10.1); Chloride 107 mmol/L (98-107); Creatinine, Serum 1.18 mg/dL (0.55-1.02); EST Glomerular Filtration Rate 49 mL/min (>60); Est Glom Filt Rate - Afr Amer 59 mL/min (>60); Free T3 2.7 pg/mL (2.18-3.98); Globulin 3.5 g/dL (2.2-4.2); Glucose 93 mg/dL (74-106); Potassium 3.8 mmol/L (3.5-5.1); Protein, Total 7.4 g/dL (6.4-8.2); Sodium Level 139 mmol/L (136-145); T4 Free Direct 0.99 ng/dL (0.76-1.46); Thyroid Stim Hormone (TSH) 4.26 uIU/mL (0.358-3.74)
[2024-03-17 15:40] LABS: Erythrocyte Sedimentation Rate 4 mm/hr (0-30)
[2024-03-17 15:43] LABS: Absolute Lymphocyte Count 1.77 X10^3/uL (0.83-4.51); Absolute Neutrophil Count 2.7 X10^3/uL (2.0-7.7); Basophil# 0.05 X10^3/uL; Basophil% 0.9 % (0-1); Eosinophil# 0.25 X10^3/uL; Eosinophils% 4.6 % (0-5); Hematocrit 42.8 % (37-47); Hemoglobin 14.2 g/dL (12.0-15.0); Lymphocyte # 1.77 X10^3/ul (0.83-4.51); Lymphocyte % 32.5 % (19-41); Mean Corp Hgb Conc 33.2 g/dL (32-36); Mean Corpuscular Hgb 28.6 pg (27.0-32.0); Mean Corpuscular Volume 86.3 fL (81-99); Mean Platelet Vol. 11.3 fl (6.2-12.0); Monocyte# 0.62 X10^3/uL; Monocyte% 11.4 % (0-10); NRBC Flagged by Analyzer 0 % (0-5); Neutrophil # 2.74 X10^3/uL (2.7-7.7); Neutrophil % 50.4 % (47-70); Platelet Count 301 K/mm3 (150-450); RBC Distribution Width CV 13.2 % (11.6-14.6); RBC Distribution Width SD 41.6 fl (35.1-43.9); Red Blood Count 4.96 M/mm3 (4.2-5.4); White Blood Count 5.4 K/mm3 (4.4-11.0)
== END | disposition home or self-care (01) ==
LOC: BFHLAB 11:44
PROVIDERS: PCP Family Medicine; Referring Provider Family Medicine; Visit Provider Family Medicine
DX: E03.9 Hypothyroidism, unspecified (principal); I10 Essential (primary) hypertension; R53.83 Other fatigue; R06.00 Dyspnea, unspecified; R73.01 Impaired fasting glucose
CPT/HCPCS: 36415; 80053; 83036; 84439; 84443; 84481; 85025; 85652; 86140

== ENCOUNTER → 2024-03-26 | Outpatient (CLI) | payer OTHER, SELFPAY ==
--- NOTE | 2024-03-26 09:23 | RAD_ITS ---
STUDY: X-RAY CHEST REASON FOR EXAM: Female, 64 years old. Dyspnea. TECHNIQUE: Frontal and lateral views of the chest. COMPARISON: None. FINDINGS: Mild hyperinflation. There is no demonstrated pleural abnormality. Normal size heart. Normal mediastinum and julio cesar. Normal visualized pulmonary arteries. Normal visualized aortic arch and descending thoracic aorta. Thoracic osteopenia with diffuse mild thoracic spondylosis. Normal visualized ribs, clavicles, and shoulders. No abnormality of the visualized soft tissue structures of the upper abdomen. RAD/Chest PA and Lateral IMPRESSION: Hyperinflation with no acute or active cardiopulmonary disease. Electronically Signed: Gerber Eller MD at 10:08 EDT ,
== END | disposition home or self-care (01) ==
LOC: MTRAD 09:22
PROVIDERS: PCP Family Medicine; Referring Provider Family Medicine; Visit Provider Family Medicine
DX: R06.00 Dyspnea, unspecified (principal); R05.9 Cough, unspecified
CPT/HCPCS: 71046